=== PATIENT | female | born 1990 | race Caucasian/White ===

== ENCOUNTER 2020-07-08 17:22 | Outpatient (CLI) | payer OTHER ==
[~2020-07-08] VITALS: Ht 164 cm; Wt 84.0 kg
[~2020-07-08 17:22] MED LIST: CEPH250S; MTR500T; NITR100C; ONDAN4ODT PO; ONDN4T PO; PREN-142 PO; PROM25SU10 PR; PROM6.25; VITAMIN B6
--- NOTE | 2020-07-08 17:30 | NUR ---
DIAZ DIXON presented to unit via ambulatory from home, alone , with c/o VOMITING since wednesday. went to drive in on wednesday night, ate a hotdog. Wondered if that may have caused it. has vomitted 7 times since wednesday. DIAZ DIXON weighed, gowned, voided, and to bed. EFHM and TOCO applied, VS taken. DIAZ DIXON oriented to bed controls, call light, TV, heat, and A/C controls.
[2020-07-08] MEDS ORDERED: ONDANSETRON 4 MG/2 ML (SDV) Z0FRAN ONE (18:03)
[2020-07-08] MEDS ORDERED: LACTATED RINGERS 1,000 ML IV ONE (18:03)
[2020-07-08 18:05] VITALS: BP 121/73
--- NOTE | 2020-07-08 18:05 | NUR ---
Dr. Brooks notified of patient admit and status. New orders given and plan of care explained to patient. Agrees.
[2020-07-08] MEDS ORDERED: LACTATED RINGERS 1,000 ML IV SCH (18:15)
[2020-07-08] MEDS ORDERED: ONDANSETRON 4 MG/2 ML (SDV) Z0FRAN IVP ONE (18:15)
[2020-07-08 18:34] LABS: BILIRUBIN,URINE NEGATIVE (NEGATIVE); CLARITY,URINE CLEAR; COLOR,URINE YELLOW; GLUCOSE, URINE (UA) NEGATIVE (NEGATIVE); KETONES,URINE NEGATIVE (NEGATIVE); LEUKOCYTE ESTERASE ,URINE NEGATIVE (NEGATIVE); NITRITE,URINE NEGATIVE (NEGATIVE); PROTEIN,URINE NEGATIVE (NEGATIVE)
[2020-07-08 18:43] LABS: BACTERIA,URINE TRACE /HPF; RBC,URINE RARE /HPF
[2020-07-08] MEDS ORDERED: ONDANSETRON 4 MG (ZOFRAN) ORAL DISSOLVE TAB ONE (19:52)
[2020-07-08] MEDS ORDERED: ONDA4TAB11 PO (19:55)
[2020-07-08] MEDS ORDERED: ONDANSETRON 4 MG (ZOFRAN) ORAL DISSOLVE TAB PO ONE (20:00)
--- NOTE | 2020-07-08 20:05 | NUR ---
D/C instructions given & explained, pt. verbalized understanding & signed, copy of D/C to pt, pt. very appreciative. Pt. left [facility] ambulatory on own, to home via private vehicle, pt's MIL picking her up @ED entrance. Will call Rx to [facility] per pt's request.
--- NOTE | 2020-07-09 08:31 | Physician Query-Final Dx ---
LUANA URBINA 07/09/20 0831: Clinic Account Progress/Dx Physician Query: Please give diagnosis Please include # weeks gestation Date of Service Jul 08, 2020 at 17:22 CAT LAWRENCE MD 07/11/20 0657: Clinic Account Progress/Dx DIAGNOSIS: Diagnosis 1. IUP at 36 weeks, non labor 2. Previous LUANA URBINA Jul 09, 2020 08:31 CAT LAWRENCE MD Jul 11, 2020 06:57
== END 2020-07-08 20:05 | disposition home or self-care (01) ==
LOC: WSo 17:22 → LDRP 17:22 → WSo 20:05
PROVIDERS: ATTEND Family Medicine
DX: O21.9 Vomiting of pregnancy, unspecified (principal); Z3A.37 37 weeks gestation of pregnancy
CPT/HCPCS: 81000; 87088; 96361; 96374; G0463; 99213